=== PATIENT | female | born 1960 | race Asian ===

== ENCOUNTER 2019-02-08 09:39 | Observation (INO) | payer OTHER ==
[~2019-02-08] VITALS: Ht 152.4 cm; Wt 62.1 kg
[2019-02-08] VITALS (7 sets, daily range): BP systolic 125–143; BP diastolic 59–93
[~2019-02-08 09:39] MED LIST: ALKA-SELTZER E500 MG PO; CALCIUM + VIT1 EACH; CELEBREX 200 M200 M1 PO; CENTRUM ULTRA1 EACH PO; FISH OIL 1,001000 M2 PO; LORTAB 5 MG/5001 TAB PO; MUCINEX DM TABL1 TA1 PO; NORCO 5-325 TA1 EACH PO; OMEPRAZOLE 20 M20 MG PO; PHENERGAN 25 MG25 M1 PO; STOOL SOFTENER50 MG PO; TYLENOL325 MG PO; UNICOMPLEX M TA1 TA1 PO; ZOFRAN ODT4 MG PO; ZYRTEC10 M5 PO
[2019-02-08] MEDS ORDERED: CALCIUM + D3 E1 EACH PO (09:59)
[2019-02-08] MEDS ORDERED: TYLENOL325 MG PO (10:00)
[2019-02-08 10:06] LABS: ABSOLUTE NEUTROPHILS 2.8 thou/uL (1.4-8.2); BASOPHILS 0.8 % (0.0-2.0); HEMATOCRIT 40.7 % (37.0-47.0); HEMOGLOBIN 13.9 gm/dL (12.0-15.0); LYMPHOCYTES 40.9 % (24.0-44.0); MCH 28.5 pg (26.0-34.0); MCHC 34.1 g/dL (28.0-37.0); MCV 83.7 fL (80.0-100.0); MONOCYTES 5.2 % (1.0-8.0); PLATELET COUNT 286 thou/uL (150-400); POLYS 51.1 % (36.0-66.0); RBC 4.87 mil/uL (4.20-5.00); RDW 13.2 % (10.5-14.5); WBC 5.4 thou/uL (4.0-11.0)
[2019-02-08 10:12] LABS: ANION GAP 11 mmol/L (7-16); BUN 13 mg/dL (7-18); CALCIUM 9.5 mg/dL (8.5-10.1); CHLORIDE 103 mmol/L (98-107); CO2 26 mmol/L (21-32); CREATININE 0.6 mg/dL (0.6-1.0); GLUCOSE 118 mg/dL (74-106); POTASSIUM 3.3 mmol/L (3.5-5.1); SODIUM 140 mmol/L (136-145)
[2019-02-08 10:20] LABS: ALBUMIN 4.4 g/dL (3.4-5.0); SGOT 15 U/L (15-37); SGPT 28 U/L (30-65); TOTAL BILIRUBIN 0.3 mg/dL (<0.1-1.0); TROPONIN-I <0.06 ng/mL (<0.06)
[2019-02-08 10:22] LABS: PROTIME 10.1 Seconds (9.3-11.4)
--- NOTE | 2019-02-08 10:30 | EKG ---
[facility] [employer] [place] [address] ELECTROCARDIOGRAM REPORT Name: LEANNE ARROYO Room #: REG Steph#: [id number] ������������������ Admission: 02/08/19 ������������������ Attend Phys: Discharge: ������������������ Date of : 64 Report #: [id number] ����������������������������������������������������������������� [id number] THIS REPORT FOR: //name// [facility] ED Test Date: 2019-02-08 Test Time: 09:47:08 Pat Name: LEANNE ARROYO Department: Room: Gender: F [employer]: OLVIN : 1960 Requested By: Maico Mclain Order Number: [id number] MD: Paul Antony Measurements Intervals Ewing Rate: 81 P: 69 PA: 176 QRS: 47 QRSD: 92 T: -18 QT: 382 QTc: 444 Interpretive Statements Sinus rhythm Nonspecific ST and T wave abnormality Compared to ECG 07/11/2016 12:40:39 No significant changes Electronically Signed On 02-08-2019 10:30:04 CDT by Paul Antony [email or web address] ��������������������������������������������� <ELECTRONICALLY SIGNED> ���������������������������������������� By: Paul Antony MD, [facility] ��������������������������������������������� 02/08/19 1030 0947 0947 Paul Antony MD, FACC /EPI
[2019-02-08] MEDS ORDERED: TUMS PO (13:21)
--- NOTE | 2019-02-08 18:17 | NUR ---
PT ADMIITED FROM ED REPORTING TIGHTNESS TO CHEST THAT WAS WORSE THIS MORNING..RELIEF OBTAINED WITH MAALOX...TROP NEG X 2...NO CHEST PAIN NOTED SINCE ADMISSION TO UNIT...
[2019-02-09 04:20] VITALS: BP 126/68
[2019-02-09 04:46] LABS: HEMATOCRIT 36.8 % (37.0-47.0); HEMOGLOBIN 12.4 gm/dL (12.0-15.0); MCH 28.4 pg (26.0-34.0); MCHC 33.8 g/dL (28.0-37.0); RBC 4.38 mil/uL (4.20-5.00); WBC 4.9 thou/uL (4.0-11.0)
[2019-02-09 04:57] LABS: CALCIUM 8.9 mg/dL (8.5-10.1); CREATININE 0.6 mg/dL (0.6-1.0); POTASSIUM 3.7 mmol/L (3.5-5.1)
[2019-02-09 07:58] VITALS: BP 122/65
[2019-02-09 12:30] VITALS: BP 108/52
[2019-02-09 13:04] VITALS: BP 108/52
--- NOTE | 2019-02-14 08:14 | HC ---
[facility] [place] [address] CONSULTATION Name: LEANNE ARROYO Room #: 356-P [facility] Bob Choi#: [id number] Admission: 02/08/19 ������������������ Attend Phys: Sriram La MD Discharge: 02/09/19 ������������������ Date of : 64 Report #: [id number] THIS REPORT FOR: //name// CC: [facility] physician/PCP Sriram HERNANDEZ DATE OF SERVICE: 02/09/2019 REASON FOR CONSULTATION: The patient is a 58-year-old woman with atypical chest pain. 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 She does not know specifics with regards to diagnosis; however, she has been seen by Dr. Dashawn Hernandez and has had serial MRI scans. She reported initially every 3 months, then every 6 months and she anticipates now to go to a once a year schedule. She has done well since her surgery. However, following her surgery, she did notice some change. Initially after surgery, she has had a lot of nausea and vomiting, particularly eating. She clearly describes symptoms of early satiety, those symptoms have improved to the point she is not vomiting that much anymore, but she does have some nausea and she does feel full after eating; however, she has not had any significant weight loss. She recently had increased symptoms with pressure in her chest. She presented to the Emergency Room at [facility]. She has been seen in consultation by Dr. Antony who has felt her chest pain is not cardiac in etiology and GI evaluation was requested. She does not have any dysphagia. She has never had hematemesis. She denies regular use of nonsteroidals. She did use Celebrex in the past, but has not taken it in more than a year. She has not had any rectal bleeding or melanotic stools. PAST MEDICAL HISTORY: She has been treated for reflux disease with omeprazole. She has had borderline hyperlipidemia in the past. PAST SURGICAL HISTORY: Gastric surgery as noted above, previous , total abdominal hysterectomy, laparoscopic cholecystectomy in 2013 and knee surgeries x 2. ALLERGIES: CODEINE. HOME MEDICATIONS: Acetaminophen 650 mg every 6 hours as needed, chewable Tums [facility] [address] [place] [address] CONSULTATION Name: LEANNE ARROYO Room #: 356-P [facility].#: [id number] Admission: 02/08/19 ������������������ Attend Phys: Sriram La MD Discharge: 02/09/19 ������������������ Date of : 64 Report #: [id number] 500 mg daily, calcium with vitamin D 1 daily, multivitamin, omeprazole 20 mg daily. FAMILY HISTORY: Mother of stomach cancer. No family history of colon cancer. SOCIAL HISTORY: . Does not smoke, consumes alcohol on occasion. REVIEW OF SYSTEMS: GENERAL: No recent change in weight. No fever or chills. CENTRAL NERVOUS SYSTEM: No focal weakness, numbness, loss of consciousness, seizures or strokes. ENT: No change in vision or hearing. No sores in mouth. PULMONARY: No cough, pneumonia or tuberculosis. CARDIOVASCULAR: Recent chest pain is noted. No known coronary artery disease. GASTROINTESTINAL: Early satiety, some nausea and vomiting in the past, but not recently. GENITOURINARY: Without dysuria or pyuria. GYNECOLOGIC: Previous hysterectomy. No breast problems. MUSCULOSKELETAL: She has had knee surgery and arthritis in her knee. SKIN: Without rash. PSYCHIATRIC: No depression, anxiety or bipolar illness. ENDOCRINE: Not aware of any hormonal problems, diabetes or thyroid disease. HEMATOLOGIC: Gastric tumor as noted above. No other tumors or malignancies. No blood dyscrasias. PHYSICAL EXAMINATION: GENERAL: The patient is a well-developed, well-nourished, overweight woman, in no acute distress. VITAL SIGNS: Blood pressure 108/52, pulse of 80 and regular. HEENT: Anicteric. Pupils equal and round. Oropharynx clear. NECK: Supple. CHEST: Clear. HEART: Regular rate and rhythm, normal S1 and S2. ABDOMEN: Normal bowel sounds, soft, nontender without hepatosplenomegaly or masses. RECTAL: Not done. EXTREMITIES: Without cyanosis, clubbing or edema. NEUROLOGIC: Oriented to person, place and time. Moves all 4 extremities well. ASSESSMENT: 1. Atypical chest pain. 2. History of reflux disease. 3. Status post resection of gastric tumor, question pathologic type. I would wonder if this is a gastrointestinal stromal tumor. 4. Degenerative joint disease of the knee. [address] [address] CONSULTATION Name: CRUZVEE Room #: 356-P [facility] Bob Choi#: [id number] Admission: 02/08/19 ������������������ Attend Phys: Sriram La MD Discharge: 02/09/19 ������������������ Date of : 64 Report #: [id number] 5. Previous cholecystectomy. RECOMMENDATIONS: 1. Upper endoscopy can be done as an outpatient. 2. May need gastric emptying study to evaluate for gastroparesis in view of her symptoms of early satiety. 3. Continue omeprazole. 4. Consider colonoscopy if never done or needs to be updated. ��������������������������������������������� <ELECTRONICALLY SIGNED> ���������������������������������������� By: Darrius Arellano MD ��������������������������������������������� 02/14/19 0814 1305 [id number] Darrius Arellano MD /nt
== END 2019-02-09 13:32 | disposition home or self-care (01) ==
LOC: ER 09:39 → EROBS 11:45 → 3W 12:47
PROVIDERS: Emergency Medicine; ADMIT Hospitalist
DX: R07.89 Other chest pain (principal); K21.9 Gastro-esophageal reflux disease without esophagitis; K56.7 Ileus, unspecified; Z88.5 Allergy status to narcotic agent; Z98.84 Bariatric surgery status; Z90.711 Acquired absence of uterus with remaining cervical stump; Z98.890 Other specified postprocedural states